=== PATIENT | male | born 1960 | race Caucasian/White ===

== ENCOUNTER → 2024-02-18 13:50 | Outpatient (REF) | payer OTHER, SELFPAY | LOC: HWRAD 13:50 | PROVIDERS: ATTENDING PHYSICIAN Student in an Organized Health Care Education/Training Program; FAMILY PHYSICIAN Family Medicine | DX: M25.562 Pain in left knee (principal) | CPT/HCPCS: 73560; 73565 ==

== ENCOUNTER → 2024-05-27 08:29 | Outpatient (REF) | payer OTHER, SELFPAY | LOC: PET 08:29 | DX: Z01.810 Encounter for preprocedural cardiovascular examination (principal) | CPT/HCPCS: 78431; A9555; J2785 ==

== ENCOUNTER 2024-07-24 11:29 | Inpatient (IN) | payer OTHER, SELFPAY ==
[2024-07-01 14:06] VITALS: BMI 34.1
[2024-07-01 14:25] LABS: Hematocrit 41.3 % (39.0-52.0); Hemoglobin 14.6 g/dL (13.0-18.0); Mean Corp Hgb Conc. 35.4 g/dL (33.0-37.0); Mean Corpuscular Hgb 34.3 pg (27.0-31.0); Mean Corpuscular Volume 96.9 fL (80.0-94.0); Mean Platelet Volume 11.2 fL (7.4-10.4); Platelet Count 229 10^3/uL (130-400); Red Blood Cell Count 4.26 10^6/uL (4.70-6.10); White Blood Cell Count 7.7 10^3/uL (4.8-10.8)
[2024-07-01 14:38] LABS: ALT (SGPT) 56 U/L (0-50); AST (SGOT) 31 U/L (17-59); Albumin 4.5 g/dl (3.5-5.0); Alkaline Phosphatase 62 U/L (38-126); Blood Urea Nitrogen 28 mg/dl (9-20); Calcium 9.1 mg/dl (8.4-10.2); Carbon Dioxide 31 mmol/L (22-30); Chloride 101 mmol/L (98-107); Estimated Creatinine Clearance 83 ml/min; Glucose 160 mg/dl (70-99); Potassium 4.6 mmol/L (3.5-5.1); Sodium 141 mmol/L (135-145); Total Bilirubin 0.4 mg/dl (0.2-1.3); Total Protein 6.5 g/dl (6.3-8.2); eGFR > 60.00
[2024-07-01 14:44] LABS: C-Reactive Protein < 5.00 mg/L (0.0-10.00)
[2024-07-01 14:56] LABS: Erythrocyte Sed Rate 11 mm/hour (0-20)
[2024-07-02 09:30] LABS: Glycohemoglobin (HgbA1c) 5.1 % (4.0-5.6)
[2024-07-18 11:30] VITALS: BMI 34.1
[2024-07-24] VITALS (10 sets, daily range): BP systolic 100–122; BP diastolic 50–71; PULSE 76; BMI 34.1
[2024-07-24] MEDS: MOBIC 15 MG PO (12:06)
[2024-07-24] MEDS: TYLENOL 650 MG PO ×4 (12:06→22:59)
[2024-07-24] MEDS: NORMOSOL-R/PLASMALYTE-A 1000 IV ×2 (12:10→17:20)
--- NOTE | 2024-07-24 12:18 | W.PN.UPDATE ---
Update Note
Progress Note Update
63-year-old male who presented to with acute right knee pain and was found to have right septic pre-patellar bursitis of comanche joint. He has undergone a bursectomy with I&D 06/16 2023.. Final cultures resulted MSSA and Strep viridans
Patient was discharged initially on oral doxycycline and did not have favorable response with recurrent sinus tract drainage. He is followed by infectious disease, Dr. Jaylin Kelly. Anabiotic course was transitioned to IV cefazolin for six weeks,
with a great response. As of CRP being less than five ESR less than 11.
He continued to have recurring intractable right knee pain and was found to have end stage arthritis. He presents today for elective right total knee arthroplasty.
--needs Cefadroxil ppx Rx outpatient vs ID recommendations
DVT ppx-Xarelto 10mg hs until POD#3
Past medical history:
Aifb.
CVA 08/2022-s/p TPA + PFO repair- resolved deficits
Hypertension,
Hyperlipidemia
GERD
Calvillo�s esophagus
Obstructive, sleep apnea CPAP.
Degenerative disc disease/spinal stenosis.
Obesity on Zepbound
--- NOTE | 2024-07-24 12:45 | W.DS.TRANS ---
DC Summary - Internet Systems Administrator
-
Discharge Instructions:
Discharge Diagnosis/Procedures R TKA Dr. Madrid 07/24/24
Diet As tolerated
Activity With Walker
Driving Restrictions No driving
Bathing Restrictions OK to Shower
Other Services PT
Instructions:
Stand-Alone Forms: Total Hip/Knee Replacement D/C
Changes to Home Medications: Yes
Discharge Medications:
DC Medications w/original date entered in [employer]
cetirizine 10 mg tablet 10 mg PO HS Allergies 05/03/21
escitalopram oxalate 10 mg tablet 10 mg PO DAILY Mental Health/Anxiety 05/03/21
DHEA 200 mg PO DAILY 06/15/23
Lactobac no.2-Bifidobac no.1-S. thermo 112.5 billion cell capsule (Visbiome) 1 cap PO HS probiotic 06/15/23
amlodipine 10 mg tablet 10 mg PO HS Blood Pressure 06/15/23
aspirin 81 mg tablet,delayed release 81 mg PO DAILY Blood Clot Prevention/Tx 06/15/23
losartan 100 mg tablet 100 mg PO DAILY Blood Pressure 06/15/23
omega 6-ykj-vde-fish oil 1,000 mg (120 mg-180 mg) capsule (Fish Oil) 1 cap PO DAILY Supplement 06/15/23
pantoprazole 40 mg tablet,delayed release 40 mg PO HS 06/15/23
rosuvastatin 20 mg tablet 20 mg PO HS 06/15/23
testosterone 200 mg implant pellet 1,400 mg SC .[id number] Hormonal Agent 06/15/23
Testojack 300 mg PO DAILY 07/18/24
tirzepatide (weight loss) 12.5 mg/0.5 mL subcutaneous pen injector (Zepbound) 12.5 mg SC QWEEK 07/18/24
vitamin D3 125 mcg (5,000 unit)-vitamin K2 100 mcg capsule 1 cap PO DAILY 07/18/24
Potassium Cl Er 10 meq PO DAILY 07/24/24
acetaminophen 325 mg tablet (Tylenol) 650 mg (2 x 325 mg) PO QID #1 tab 07/24/24
cefadroxil 500 mg capsule 500 mg PO BID infection prevention #14 caps 07/24/24
dexamethasone 4 mg tablet 4 mg PO BID inflammation #6 tabs 07/24/24
docusate sodium 100 mg capsule (Colace) 100 mg PO BID stool softner #1 cap 07/24/24
gabapentin 300 mg capsule 300 mg PO HS sleep/pain #10 caps 07/24/24
magnesium hydroxide 400 mg/5 mL oral suspension (Milk of Magnesia) 30 ml PO HS PRN Constipation #1 mL 07/24/24
mupirocin 2 % topical ointment topical DIRECTED 07/24/24
ondansetron 4 mg disintegrating tablet 4 mg PO Q6H PRN n/v #20 tabs 07/24/24
oxycodone 5 mg tablet 5 mg PO Q6H PRN 1 tab moderate pain, 2 tabs severe pain #30 tabs 07/24/24
rivaroxaban 20 mg tablet (Xarelto) 10 mg (1/2 x 20 mg) PO QPM Blood Clot Prevention/Tx/afib #0 tabs 07/24/24
sennosides 8.6 mg tablet (Senokot) 17.2 mg (2 x 8.6 mg) PO BID laxative #2 tabs 07/24/24
torsemide 20 mg tablet 20 mg PO DAILY 07/24/24
Home Medication Changes
cefadroxil 500 mg capsule 500 mg PO BID infection prevention #14 caps 07/24/24
dexamethasone 4 mg tablet 4 mg PO BID inflammation #6 tabs 07/24/24
docusate sodium 100 mg capsule (Colace) 100 mg PO BID stool softner #1 cap 07/24/24
gabapentin 300 mg capsule 300 mg PO HS sleep/pain #10 caps 07/24/24
magnesium hydroxide 400 mg/5 mL oral suspension (Milk of Magnesia) 30 ml PO HS PRN Constipation #1 mL 07/24/24
mupirocin 2 % topical ointment topical DIRECTED 07/24/24
ondansetron 4 mg disintegrating tablet 4 mg PO Q6H PRN n/v #20 tabs 07/24/24
oxycodone 5 mg tablet 5 mg PO Q6H PRN 1 tab moderate pain, 2 tabs severe pain #30 tabs 07/24/24
rivaroxaban 20 mg tablet (Xarelto) 10 mg (1/2 x 20 mg) PO QPM Blood Clot Prevention/Tx/afib #0 tabs 07/24/24
sennosides 8.6 mg tablet (Senokot) 17.2 mg (2 x 8.6 mg) PO BID laxative #2 tabs 07/24/24
Pending Results: No
--- NOTE | 2024-07-24 15:42 | OR.RPT ---
Operative Report
Operative Report
Orthopaedic Surgery Operative Note
DATE OF OPERATION: 07/24/2024
PREOPERATIVE DIAGNOSES: Osteoarthritis, right knee.
POSTOPERATIVE DIAGNOSES: Osteoarthritis, right knee.
OPERATION PERFORMED:
1) Right total knee arthroplasty (CPT 11332)
2) Intraosseous administration of analgesic (CPT 54085)
3) Prepatellar bursectomy right knee
SURGEON: Roberto Carlos Madrid MD
ASSISTANTS: John Laguerre PA-C who helped with patient and limb positioning and retraction
ANESTHESIA: Spinal by anesthesia plus intraoperative infusion of morphine into the tibial metaphysis by Dr. Madrid
COMPLICATIONS: None.
SPECIMINE: Culture x1, prepatellar bursa
ESTIMATED BLOOD LOSS: 20mL
DRAINS: None
TOURNIQUET TIME: 61 minutes.
IMPLANTS:
- Destiny Persona CR Femur, size 12
- Destiny Persona tibia base plate, size G
- Destiny Persona ultracongruent articular surface, 12 mm
- All-polyethylene patellar component, size 35
- DJO Orange bone cement
INDICATIONS: The patient presented to my office with debilitating right knee pain due to osteoarthritis. We reviewed the natural history of this problem, as well as the risks, benefits, and alternatives of various treatment options. The patient
exhausted all nonoperative treatment options and wished to proceed with knee replacement surgery. The patient understood the risks which included, but were not limited to, bleeding, infection, failure to relieve pain, more pain than preop, damage to
blood vessels and nerves, need for reoperation, mechanical failure of the implants, wound healing problems, stiffness, instability, blood clot, pulmonary embolism, myocardial infarction, pneumonia, arrhythmia, CVA, and . The patient accepted
these risks and wished to proceed. All questions were answered, and informed consent was obtained.
Of note, the patient had a history of chronic eschar over prepatellar bursa. He had history of prepatellar bursa infection treated by open I&D by me over a year ago. He was treated with IV abx and went on to cure the infection. He saw ID team prior
to elective R TKA and they had low concern for persistent infection, as did I.
PROCEDURE IN DETAIL: The patient was identified in the preoperative holding area. The right knee was identified as the operative site. The patient was taken in the operating room and placed in a supine position on the operating table. Spinal
anesthesia was performed. IV antibiotics and tranexamic acid were administered. An SCD was placed on the left lower extremity. A well-padded tourniquet was placed on the proximal thigh. All bony prominences were well padded. The right lower
extremity was prepped and draped in the usual sterile fashion.
We performed a surgical time-out. An interarticular block was performed with local anesthetic with epinephrine. The limb was exsanguinated with an Esmarch bandage, then the tourniquet was inflated to 250 mmHg. I performed interosseous administration
of morphine-saline solution via a Jamshidi style intraosseous needle into the proximal medial tibial metaphysis as described by Darrell Little MD. This was performed to aid in pain control. A midline skin incision was made excising the prior anterior
scar from his prepatellar bursectomy as well as a small escar medial to the prior incision, ellipsing the two out together. This was followed by dissection of the prepatellar bursa from the underlying patella. The patella bursa was excised with 10
blade scapel down to bone and excised and sent for culture prophylactically. A medial parapatellar arthrotomy. A subperiosteal peel was performed on the medial tibia. I excised part of the infrapatellar fat pad to improve our visualization as well
as tissue over anterior femur. The patella was everted and the knee was flexed. I excised the remnants of the anterior and posterior cruciate ligaments as well as tibial and femoral osteophytes with rongeurs.
The knee was flexed, and the extramedullary tibial cutting guide was aligned. [place] was aligned at neutral, rotation was centered on the tibial tubercle, and coronal alignment was aligned with the mechanical axis of the tibia and center of the ankle
joint. The cut height was 10mm off the lateral tibia joint surface. The guide was secured into place. The MCL and LCL were protected. The tibia surface was cut. The cut surface was inspected after removal to ensure appropriate height and slope based
on the preoperative plan. The cut was checked with a drop dennis. It was centered nicely at the ankle.
A drill was used to open the femoral canal. The intramedullary distal femoral cutting guide was inserted into the femur. This was set at 5 degrees +0. This was secured into place with three pins. The cut level was checked with an greg wing. The
distal femur was cut through the cutting guide. The IM guide was reinserted to double check that the level of resection was flush and in appropriate alignment.
Jensen�s line and the transepicondylar axis were marked on the femur. The femoral sizing guide was applied to the anterior femur. Pins were inserted, and the 4-in-1 cutting guide was applied and secured into place. The rotation was compared to
[place]�s line, the transepicondylar axis, and the neutral tibia cut and was found to be appropriate. The width was checked and found to be appropriate and lateralized on the femur. The anterior, posterior, and chamfur cuts were made. A lamina
gear tooth grinding machine operator was used to open the flexion gap, and posterior osteophytes were removed with a curved osteotome. The remnant medial and lateral meniscus were also removed. I prophylactically cauterized the lateral geniculate arteries. A 10mm spacer block
was applied to the flexion gap and was noted to be balanced medially and laterally. The knee was extended, and the block showed symmetric to extension and flexion gaps.
The tibia was exposed and sized. Rotation was set in line with the tibial tubercle and congruent with the femur. The trial was secured into place with two pins. The trial femur was impacted into place, and a trial articular surface was placed. The
knee was taken through range of motion and noted to be stable throughout the arc of motion without gaping or excess tension. In extension, a measured resection of the patella was performed. The patella was sized, and lug holes were drilled. A trial
patella component was applied, and it was noted to track centrally throughout the arc of motion without need for further releases.
The trials were removed. The tibia keel was prepared with the punch and the drill. The bone surfaces were irrigated with sterile saline and dried. The cement was mixed in a vacuum mixer. Cement gun was used to apply cement to the tibial surface and
the undersurface of the tibial implant. Cement was pressurized into the tibial canal and tibia surface. The tibial component was impacted into place. Excess cement was removed. Cement was applied to the femoral surface and the femoral component. The
femoral component was impacted into place, and excess cement removed. A trial articular surface was inserted, and the knee was extended while the cement polymerized. The tourniquet was let down, and meticulous hemostasis was achieved. Dilute
betadine was poured into the wound and allowed to soak for 3 minutes. The knee was irrigated with copious normal saline.
Once the cement was polymerized, the trial articular surface was removed. Any excess cement was removed. The knee was trialed, and the final articular surface was selected and inserted into the tibial locking mechanism. The knee was reduced. A fresh
drape was applied to the surgical field.
The arthrotomy was closed with 0-PDS. Once closed, an interarticular block was performed with local anesthetic with epi. The deep dermal layer was closed with 2-0 PDS, and the subcuticular skin was closed with 3-0 monocryl. A Dermabond Prineo
dressing was applied to the skin in full flexion. Once this was completely dry, a sterile waterproof dressing was applied.
The anesthesia team performed an adductor canal block in the OR. The patient awoke from anesthesia without any difficulties. The sponge and instrument counts were correct x2 at the end of the case.
Goldy Madrid MD
[2024-07-24] MEDS: ROXICODONE 5 MG PO (16:21)
--- NOTE | 2024-07-24 17:00 | PTCARENOTE ---
pt received as admission to room 2117 from PACU. Pt AAOX3, slightly drowsy. denies pain. SR with pacs on telemtry heart rate 80s. pulses palpable. right knee incision with mepilex intact no drainage. admission completed. at bedside. see
worklist for full nursing assessment and interventions.
--- NOTE | 2024-07-24 17:44 | RESPNOTE ---
patient agreeable to using hospital cpap unit. confirmed with patient and spouse of settings- cpap +10 with Ramp,* full mask.
[2024-07-24] MEDS: XARELTO 10 MG PO (18:19)
[2024-07-24] MEDS: SENOKOT 17.2 MG PO (19:31)
[2024-07-24] MEDS: ULTRAM 50 MG PO (19:32)
[2024-07-24] MEDS: ANCEF 5 IV (19:32)
[2024-07-24] MEDS: BACTROBAN 2% OINTMENT 1 APPLIC NASAL (19:32)
[2024-07-24] MEDS: COLACE 100 MG PO (19:32)
[2024-07-24] MEDS: DECADRON 4 MG IV (19:33)
[2024-07-24] MEDS: CRESTOR 20 MG PO (22:42)
[2024-07-24] MEDS: NEURONTIN 300 MG PO (22:43)
[2024-07-24] MEDS: ZYRTEC 10 MG PO (22:43)
[2024-07-24] MEDS: VISBIOME 1 CAP PO (22:43)
[2024-07-24] MEDS: PROTONIX 40 MG PO (22:43)
[2024-07-24] MEDS: VALIUM 5 MG PO (22:45)
[2024-07-25] MEDS: TYLENOL 650 MG PO ×3 (03:10→12:11)
[2024-07-25] MEDS: ANCEF 5 IV (03:10)
[2024-07-25 03:20] VITALS: BP 122/71
[2024-07-25 07:45] VITALS: BP 136/69
[2024-07-25 07:48] LABS: Hepatitis C Antibody Negative (Negative)
[2024-07-25] MEDS: ASPIR LOW (ENTERIC COATED) 81 MG PO (08:49)
[2024-07-25] MEDS: COLACE 100 MG PO (08:50)
[2024-07-25] MEDS: LEXAPRO 10 MG PO (08:50)
[2024-07-25] MEDS: SENOKOT 17.2 MG PO (08:51)
[2024-07-25] MEDS: ULTRAM 50 MG PO (08:51)
[2024-07-25] MEDS: BACTROBAN 2% OINTMENT 1 APPLIC NASAL (08:52)
[2024-07-25] MEDS: DECADRON 4 MG IV (08:56)
[2024-07-25 10:20] VITALS: BP 111/73; BP 118/69; PULSE 85
--- NOTE | 2024-07-25 11:37 | W.PN.ORTHO ---
Today's Communication / Plan
-
d/c
Assessment
.
Distal Motor Intact: Yes
Dressing:
Clean, dry and intact.
Assessment:
63-year-old male who presented to with acute right knee pain and was found to have right septic pre-patellar bursitis of jena joint. He has undergone a bursectomy with I&D 06/16 2023.. Final cultures resulted MSSA and Strep viridans
Patient was discharged initially on oral doxycycline and did not have favorable response with recurrent sinus tract drainage. He is followed by infectious disease, Dr. Jaylin Kelly. Anabiotic course was transitioned to IV cefazolin for six weeks,
with a great response. As of CRP being less than five ESR less than 11.
He continued to have recurring intractable right knee pain and was found to have end stage arthritis. He presented for elective right total knee arthroplasty.
--needs Cefadroxil ppx Rx outpatient--Rx sent
DVT ppx-Xarelto 10mg hs until POD#3
Past medical history:
Aifb.
CVA 08/2022-s/p TPA + PFO repair- resolved deficits
Hypertension,
Hyperlipidemia
GERD
Calvillo�s esophagus
Obstructive, sleep apnea CPAP.
Degenerative disc disease/spinal stenosis.
Obesity on Zepbound
Plan
.
Surgery / Date: R TKA Dr. Madrid 07/24/24
DVT Prophylaxis: Other (Xarelto)
Activity:
Out of bed.
PT/OT
Discharge Plan: Home w/ Outpatient PT
Subjective
.
.:
Patient resting comfortably.
Vital Signs and Labs
.
Vital Signs and Labs:
Lab Results
07/01/24 13:47
07/01/24 13:47
Temp Pulse Resp BP Pulse Ox
97.9 F 93 16 136/69 97
07/25/24 07:45 07/25/24 07:45 07/25/24 07:45 07/25/24 08:52 07/25/24 07:45
Non-invasive Hgb result: 13.7
Physical Exam
-
HEENT: No pallor, cyanosis, or jaundice. Throat clear.
NECK: Supple. No JVD.
RESPIRATORY: Lungs clear to auscultation.
CVS: S1, S2 normal. RRR.� No murmur, rub or gallop.
ABDOMEN: Soft, non-tender. No distension. BS+/normal.
EXTREMITIES: strength equal, no calf pain with palpation
SCREEN CLEANER: AOx3. No focal deficits. forge operator helper grossly intact
[2024-07-25 12:00] VITALS: BP 157/76
[2024-07-25 12:41] VITALS: BP 139/72; PULSE 84; O2SAT 96
--- NOTE | 2024-07-25 13:02 | CM ---
Patient seen at bedside, ready to go home. Patient aware per patient. Patient states that he lives with his . Patient plan is to go to outpatient therapy at the hospital and patient claimed no needs at this time. CM will continue to follow
for discharge planning needs.
Plan; home with outpatient therapy.
[2024-07-25] MEDS: ROXICODONE 5 MG PO (13:52)
== END 2024-07-25 15:30 | disposition home or self-care (01) | DRG 470 ==
LOC: 2 SOUTH 11:29
PROVIDERS: ADMITTING PHYSICIAN Orthopaedic Surgery; FAMILY PHYSICIAN Family Medicine; REFERRING PHYSICIAN Anesthesiology
PROC: 0SRC069 Replacement of Right Knee Joint with Oxidized Zirconium on Polyethylene Synthetic Substitute, Cemented, Open Approach (ICD-10-PCS; 2024-07-24)
DX: M17.11 Unilateral primary osteoarthritis, right knee (principal); M71.161 Other infective bursitis, right knee; E66.9 Obesity, unspecified; Z68.34 Body mass index [BMI] 34.0-34.9, adult
CPT/HCPCS: 36415; 73560; 80053; 83036; 85027; 85652; 86140; 86803; 87070; 87075; 87176; 87205; 94660; 97116; 97162; 97166; 97530; C1713; C1776

== ENCOUNTER 2024-08-04 15:58 | Outpatient (RCR) | payer OTHER, SELFPAY | END 2024-08-04 23:59 | disposition home or self-care (01) | LOC: RPT 15:58 | PROVIDERS: ATTENDING PHYSICIAN Physician Assistant Medical; FAMILY PHYSICIAN Family Medicine | DX: Z47.1 Aftercare following joint replacement surgery (principal); Z96.651 Presence of right artificial knee joint; R26.89 Other abnormalities of gait and mobility; Z73.6 Limitation of activities due to disability | CPT/HCPCS: 97010; 97110; 97162 ==

== ENCOUNTER 2024-09-01 15:50 | Outpatient (RCR) | payer OTHER, SELFPAY | END 2024-09-01 23:59 | disposition home or self-care (01) | LOC: RPT 15:50 | PROVIDERS: ATTENDING PHYSICIAN Physician Assistant Medical; FAMILY PHYSICIAN Family Medicine | DX: Z47.1 Aftercare following joint replacement surgery (principal); Z73.6 Limitation of activities due to disability; R26.89 Other abnormalities of gait and mobility; M62.81 Muscle weakness (generalized); Z96.651 Presence of right artificial knee joint | CPT/HCPCS: 97010; 97110; 97112 ==

== ENCOUNTER 2024-09-16 16:07 | Outpatient (RCR) | payer OTHER, SELFPAY | END 2024-09-17 07:21 | disposition home or self-care (01) | LOC: RPT 16:07 | PROVIDERS: ATTENDING PHYSICIAN Physician Assistant Medical; FAMILY PHYSICIAN Family Medicine | DX: Z47.1 Aftercare following joint replacement surgery (principal); Z73.6 Limitation of activities due to disability; R26.89 Other abnormalities of gait and mobility; M62.81 Muscle weakness (generalized); Z96.651 Presence of right artificial knee joint | CPT/HCPCS: 97010; 97110; 97112 ==

== ENCOUNTER → 2025-03-23 11:50 | Outpatient (REF) | payer OTHER, SELFPAY | LOC: HWRAD 11:50 | PROVIDERS: ATTENDING PHYSICIAN Family Medicine | DX: M25.512 Pain in left shoulder (principal); M25.522 Pain in left elbow | CPT/HCPCS: 73030; 73080 ==

== ENCOUNTER → 2025-04-21 19:57 | Outpatient (REF) | payer OTHER, SELFPAY | LOC: MRI 19:57 | PROVIDERS: ATTENDING PHYSICIAN Student in an Organized Health Care Education/Training Program; FAMILY PHYSICIAN Family Medicine | DX: S46.012A Strain of muscle(s) and tendon(s) of the rotator cuff of left shoulder, initial encounter (principal) | CPT/HCPCS: 73221 ==

== ENCOUNTER 2025-06-24 06:35 | Outpatient (RCR) | payer OTHER, SELFPAY | END 2025-06-24 23:59 | disposition home or self-care (01) | LOC: RPT 06:35 | PROVIDERS: ATTENDING PHYSICIAN Pediatrics Pediatric Gastroenterology; FAMILY PHYSICIAN Family Medicine | DX: Z47.89 Encounter for other orthopedic aftercare (principal); M75.122 Complete rotator cuff tear or rupture of left shoulder, not specified as traumatic; Z73.6 Limitation of activities due to disability; M25.512 Pain in left shoulder; M25.522 Pain in left elbow; M62.81 Muscle weakness (generalized) | CPT/HCPCS: 97110; 97140; 97162 ==

== ENCOUNTER 2025-07-27 14:51 | Outpatient (RCR) | payer OTHER, SELFPAY | END 2025-07-29 23:59 | disposition home or self-care (01) | LOC: RPT 14:51 | PROVIDERS: ATTENDING PHYSICIAN Pediatrics Pediatric Gastroenterology; FAMILY PHYSICIAN Family Medicine | DX: Z47.89 Encounter for other orthopedic aftercare (principal); M75.122 Complete rotator cuff tear or rupture of left shoulder, not specified as traumatic; Z73.6 Limitation of activities due to disability; M25.512 Pain in left shoulder; M25.522 Pain in left elbow; M62.81 Muscle weakness (generalized) | CPT/HCPCS: 97010; 97110; 97140 ==